=== PATIENT | male | born 1990 | race Caucasian/White ===

== ENCOUNTER → 2020-06-06 | Outpatient (CLI) | payer OTHER ==
[~2020-06-06] MED LIST: OMEP20CA16 PO
--- NOTE | 2020-06-06 11:02 | RAD ---
Esophagram 06/06/2020 CLINICAL HISTORY: Gastroesophageal reflux disease. TECHNIQUE: An esophagram was performed under fluoroscopic control. The total fluoroscopic time is 1.4 minutes. 5 digital spot radiographs were obtained. 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 This demonstrates the cardia c and mediastinal silhouettes are within normal limits in size and configuration. No pulmonary infilt rate is seen. No pleural effusion or pneumothorax is noted. The osseous structures are grossly intact . The mucosal pattern of the hypopharynx, esophagus and GE junction is within normal limits. No penetra tion or aspiration is seen. Esophageal motility is within normal limits. Mild to moderate esophageal reflux is seen to the level of the mid thoracic esophagus. IMPRESSION: Mild to moderate gastroesophageal reflux. Otherwise negative study. Electronically signed by: Lonnie Ervin MD (06/06/2020 11:00 AM) [id number]
== END ==
LOC: RAD 08:13
PROVIDERS: ATTEND Otolaryngology
DX: K21.9 Gastro-esophageal reflux disease without esophagitis (principal); R13.10 Dysphagia, unspecified
CPT/HCPCS: 74220

== ENCOUNTER → 2020-06-20 | Outpatient (CLI) | payer OTHER | LOC: LAB 09:15 | PROVIDERS: ATTEND Nurse Anesthetist, Certified Registered | DX: Z01.812 Encounter for preprocedural laboratory examination (principal); Z20.822 Contact with and (suspected) exposure to COVID-19 | CPT/HCPCS: U0003; U0005 ==

== ENCOUNTER 2020-08-27 20:53 | Emergency (ER) | payer OTHER ==
[~2020-08-27] VITALS: Ht 182.9 cm; Wt 92.5 kg
--- NOTE | 2020-08-27 21:09 | PHYS DOC ---
Adult General Chief Complaint Chief Complaint: ANKLE PROBLEM HPI HPI Patient is a 30-year-old male, who presents with a chief complaint of left ankle pain, 7 out of 10, dull and achy in nature that happened a couple hours before coming to the emergency department. States he was mowing his lawn, got off his mower and stepped into a small hole and twisted his left ankle. States he took some ibuprofen and put ice on it at home but wanted to be sure was not broken. States he is able to walk, but it causes some discomfort. Review of Systems Review of Systems Review of systems otherwise unremarkable except noted in HPI Allergies Allergies Allergies Coded Allergies Type Severity Reaction Last Updated Verified No Known Drug Allergies 06/20/20 No Physical Exam Physical Exam Constitutional: Well developed, well nourished, no acute distress, non-toxic appearance. [] Skin: Warm, dry, no erythema, no rash. [] Back: No tenderness, Extremities: Tenderness around left external and internal malleolus with no obvious swelling, bruising or deformities. Neurovascular exam intact. Neurologic: Alert and oriented X 3, no focal deficits noted. [] Psychologic: Affect normal, judgement normal, mood normal. [] EKG EKG [] Radiology/Procedures Radiology/Procedures [] Left ankle 3 views. HISTORY: Pain, twisted ankle 3 views were taken of the left ankle. There is a small avulsion fracture at the tip of the lateral malleolus. There is soft tissue swelling. There is no other acute fracture. IMPRESSION: 1. Small avulsion fracture at the tip of the lateral malleolus. Electronically signed by: Wojciech Mulligan MD (08/27/2020 9:31 PM) [facility] Heart Score C/O Chest Pain: No Risk Factors: Risk Factors: DM, Current or recent (<one month) smoker, HTN, HLP, family history of CAD, obesity. Risk Scores: Risk Factors: DM, Current or recent (<one month) smoker, HTN, HLP, family history of CAD, obesity. Course & Med Decision Making Course & Med Decision Making Patient is a 30-year-old male who presents with left ankle pain after twisting it when stepping off his mower Vital signs not concerning. Physical exam noted above. Patient iced and used ibuprofen before coming and declined need for any pain medication at this time. Imaging notable for a tiny avulsion fracture at tip of lateral malleolus. Patient placed in Shoaib wrap, air splint and crutches. Patient stated he would just use Tylenol and ibuprofen at home for pain control. Discussed all findings with patient. Advised on pain medicine at home. Advised to follow-up with primary care in the morning to update on ED visit. Gave contact information for orthopedic surgeons. Gave return precautions for the ED. Patient grateful, verbalized understanding and agreed with plan of discharge. [] Dragon Disclaimer Dragon Disclaimer This electronic medical record was generated, in whole or in part, using a voice recognition dictation system. Departure Departure: Impression: Primary Impression: Ankle sprain Additional Impression: Avulsion fracture of ankle Disposition: HOME / SELF CARE / HOMELESS Condition: GOOD Referrals: TAYLOR VALENTIN (PCP) Patient Instructions: Ankle Sprain, RICE - Routine Care for Injuries Additional Instructions: Thank you for coming into the emergency department and allowing us to take care of you. Please read all of the attached information very carefully. As discussed you can use Tylenol, ibuprofen, and ice as tolerated and as needed at home for pain control. You were also placed in an Shoaib wrap, air splint and given crutches to help with stability and pain control. When you are walking, please use your crutches as not to put any weight on that ankle until seen by either your primary care physician or orthopedic surgery. You were offered a work note, stated that you were off over the next few days anyway and was able to rest. Please contact your primary care physician in the morning to update on ED visit and set up a follow-up appointment. Please come back to the emergency department immediately with new or concerning symptoms as discussed. You can call the [facility] orthopedic surgeons tomorrow morning to set up a follow-up visit at [phone]. Please keep your Shoaib wrap, air splint on until seen by your primary care orthopedic surgeon and cleared. Problem Qualifiers BRANDO MASTERSON MD Aug 27, 2020 21:09
--- NOTE | 2020-08-27 21:33 | RAD ---
Left ankle 3 views. HISTORY: Pain, twisted ankle 3 views were taken of the left ankle. There is a small avulsion fracture at the tip of the lateral ma lleolus. There is soft tissue swelling. There is no other acute fracture. IMPRESSION: 1. Small avulsion fracture at the tip of the lateral malleolus. Electronically signed by: Wojciech Mulligan MD (08/27/2020 9:31 PM) [facility]
[2020-08-27 22:00] VITALS: BP 136/61
== END 2020-08-27 22:05 | disposition home or self-care (01) ==
LOC: ER 20:53
DX: S82.62XA Displaced fracture of lateral malleolus of left fibula, initial encounter for closed fracture (principal); X50.9XXA Other and unspecified overexertion or strenuous movements or postures, initial encounter; Y93.89 Activity, other specified; Y92.89 Other specified places as the place of occurrence of the external cause; Y99.8 Other external cause status
CPT/HCPCS: 73610; 99284; L4350